=== PATIENT | female | born 1995 | race Caucasian/White ===

== ENCOUNTER → 2018-12-30 13:30 | Outpatient (CLI) | payer BC, SELFPAY ==
--- NOTE | 2018-12-30 13:41 | XR_ITS ---
XR scoliosis survey CLINICAL INDICATION: ITS.REASON: ACQUIRED SCOLIOSIS,LEFT SIDED THORACIC PAIN ORDERING PHYSICIAN: Joelle Poep APRN PATIENT AGE: 23 years Comparison: None FINDINGS: There is a mild thoracolumbar curvature convex right measuring 8 degrees slightly increased from previous exam measuring 2 degrees. No obvious congenital anomalies. IMPRESSION: Mild thoracic lumbar scoliosis convex right
== END ==
PROVIDERS: PCP Family Medicine; Visit Provider Nurse Practitioner Family
DX: M54.6 Pain in thoracic spine (principal); M41.9 Scoliosis, unspecified
CPT/HCPCS: 72081

== ENCOUNTER → 2020-08-09 10:27 | Outpatient (CLI) | payer BC, SELFPAY ==
[2020-08-09 12:55] LABS: Coronavirus 19 IgG Antibody Negative (Negative); Coronavirus 19 IgM Antibody Negative (Negative)
== END ==
PROVIDERS: PCP Family Medicine; Visit Provider Nurse Practitioner Family
DX: Z03.818 Encounter for observation for suspected exposure to other biological agents ruled out (principal)
CPT/HCPCS: 36415; 86328

== ENCOUNTER 2020-11-29 17:42 | Emergency (ER) | payer BC, SELFPAY ==
[2020-11-29 17:43] VITALS: BP 127/84; PULSE 101; RESP 18; TEMP 36.7; O2SAT 98; BMI 27.4
--- NOTE | 2020-11-29 18:24 | HMH.EDGENADL ---
ED Disposition Clinical Impression: Headache, Migraine Disposition: Home, Self-Care Condition on Discharge: Good Referrals: Lidia Palomino APRN [Primary Care Provider] - - Critical Care Critical Care Time: No Attestation: On 11/29/20, the high probability of a clinically significant, sudden or life threatening deterioration of the following system(s) required my full and direct attention, intervention and personal management. The time I documented below is in addition to time spent performing reported procedures but includes the following listed in this critical care notation. Medical Decision Making - Medical Records Medical records reviewed: Yes: I reviewed the patient's medical records. - Felipe Inquiry Pt receiving controlled substance: No Vital Signs: 11/29/20 17:43 Temperature 98.1 F Temperature Source Oral Pulse Rate [Right] 101 H Respiratory Rate 18 Blood Pressure [Right Arm] 127/84 Blood Pressure Mean [Right Arm] 98 02 Sat by Pulse Oximetry 98 Oxygen Delivery Method Room Air Orders (Tests/Meds): ED MEDICATIONS Discontinued Medications Generic Name Dose Route Start Last Admin Trade Name Rafael PRN Reason Stop Dose Admin Diphenhydramine HCl 25 mg 11/29/20 18:06 11/29/20 18:11 Diphenhydramine 25mg Capsule PO 11/29/20 18:07 25 mg ONCE ONE Administration Ketorolac Tromethamine 30 mg 11/29/20 18:06 11/29/20 18:20 Ketorolac 60mg/2ml Vial IM 11/29/20 18:07 30 mg ONCE ONE Administration Metoclopramide HCl 10 mg 11/29/20 18:06 11/29/20 18:20 Metoclopramide Hcl 10mg/2ml Vial IM 11/29/20 18:07 10 mg ONCE ONE Administration Medical Decision Narrative: 25-year-old female presents with headache. She has normal neurological exam and no concern for bleeding or stroke. Symptoms consistent with migraine headache. Given symptomatic control and plan to discharge if she feels better. Feeling much better and requesting to be discharged plan to discharge with return precautions General Adult HPI - General Chief complaint: Headache Stated complaint: HALEY Time Seen by Provider: 11/29/20 17:45 Mode of Arrival: Family Vehicle Limitations: No Limitations Description of Symptoms (Recalled from ER Triage Doc. by RN): PATIENT C/O MIGRAINE STARTING TODAY. PT REPORTS SHE HAD THE MODERNA VACCINE TODAY AND IS CONCERNED OF THAT. PT TOOK TYLENOL TODAY WITHOUT RELIEF. PT DENIES ANY HEAD INJURY. - History of Present Illness HPI narrative: 25-year-old female presents after getting a headache. She says she has a migraine headache left-sided throbbing nonradiating no numbness weakness or tingling in arms or legs. She says that it came on after getting the Moderna Covid vaccine, she requested intramuscular medication for the migraine headache. Radiation: non-radiation Consistency: intermittent - Related Data Home Medications Medication Instructions Recorded Confirmed Sertraline HCl 25 mg PO DAILY 08/11/19 08/11/19 norgestimate-ethinyl estradioL 1 tab PO DAILY 08/11/19 08/11/19 [Sprintec 28 Day Tablet] Previous Rx's Medication Instructions Recorded Nitrofurantoin Monohyd/M-Cryst 100 mg PO BID 7 Days #14 cap 08/11/19 [Macrobid 100 mg Capsule] Ondansetron [Zofran 4mg ODT] 4 mg PO Q6HP PRN #12 tab.rapdis 08/11/19 Allergies Allergy/AdvReac Type Severity Reaction Status Date / Time No Known Allergies Allergy Verified 11/12/17 15:24 [facility] History - Hepatitis A Screen Drug use history?: No High risk sexual behaviors?: No History of sexually transmitted infection?: No Currently employed?: No Childcare worker?: No Do you have indoor plumbing?: Yes Do you have electricity?: Yes Attestation statement:: This patient has been screened for Hepatitis A risk factors. Medical History: Reports:: Migraine Other Medical History: Reports: Other Comment: back problems Other Surgeries: Yes: Other Amputation: No Fractures: No Comment: 2015- Rt. jabari
[2020-11-29 18:56] VITALS: BP 103/66; PULSE 103; RESP 16; TEMP 36.6; O2SAT 97
== END 2020-11-29 18:56 | disposition home or self-care (01) ==
PROVIDERS: Emergency Provider Emergency Medicine; PCP Nurse Practitioner
DX: G43.909 Migraine, unspecified, not intractable, without status migrainosus (principal)
CPT/HCPCS: 96372; 99281

== ENCOUNTER → 2021-08-21 17:48 | Outpatient (CLI) | payer BC, SELFPAY | PROVIDERS: PCP Nurse Practitioner Family; Visit Provider Nurse Practitioner | DX: U07.1 COVID-19 (principal) | CPT/HCPCS: C9803; U0003; U0005 ==

== ENCOUNTER 2021-11-11 14:58 | Emergency (ER) | payer BC, SELFPAY ==
[2021-11-11 15:15] VITALS: BP 114/80; PULSE 106; RESP 18; TEMP 37.2; O2SAT 98; BMI 22.0
[2021-11-11 15:42] LABS: UTC Influenza A Antigen Positive (Negative)
[2021-11-11 15:43] LABS: UTC Influenza B Antigen Negative (Negative)
[2021-11-11 15:55] VITALS: BP 114/80; PULSE 106; RESP 18; TEMP 37.2; O2SAT 98
--- NOTE | 2021-11-11 16:15 | HMH.EDUTC ---
[facility] [place] Disposition Clinical Impression: Influenza Disposition: Home, Self-Care Condition on Discharge: Good Instructions: Influenza, DI for Influenza -- Adult Additional Instructions: ? Start Tamiflu today if you are going to take it. Discussed risk and possible benefits. ? Lots of rest ? Increase Fluids water, Gatorade, powerade, pedialyte,if /toddler/child ? Alternate Tylenol and / or ibuprofen as discussed for fever, aches, chills Follow up IMMEDIATELY with your family doctor for new or worsening Symptoms OR no noticeable improvement over the next 48-72 hours, 911 for difficulty or breathing ? You or your child area contagious until no fever, aches, chills for 24 hours with medication for symptoms ? Help Prevent the spread of influenza: ? Wash your hands often. Use soap and water. Wash your hands after you use the bathroom, change a child's diapers, or sneeze. Wash your hands before you prepare or eat food. Use gel hand cleanser that has 60% alcohol, when soap and water are not available. Do not touch your eyes, nose, or mouth unless you have washed your hands first. ? Cover your mouth when you sneeze or cough. Cough into a tissue or the bend of your arm. If you use a tissue, throw it away immediately and wash your hands. ? Clean shared items with a germ-killing dry cleaner helper. Clean table surfaces, doorknobs, and light switches. Do not share towels, silverware, and dishes with people who are sick. Wash bed sheets, towels, silverware, and dishes with soap and water. ? Wear a mask over your mouth and nose if you are sick. The face mask may help protect others from becoming infected with the flu. Wear the mask when in common areas of your home or if you seek care with a healthcare provider. ? Stay away from others if you are sick. Stay at home until 24 hours after your fever and symptoms are gone. Prescriptions: Oseltamivir Phosphate [Tamiflu 75mg Capsule] 75 mg PO BID #10 cap Transmission Status: Pending to [facility] Referrals: Joelle Pope APRN [Primary Care Provider] - As needed Forms: Work/School Release Time of Disposition: 16:25 Medical Decision Making - Felipe Inquiry Pt receiving controlled substance: No Felipe was queried for this patient: No Vital Signs: 11/11/21 15:15 11/11/21 15:55 Temperature 98.9 F 98.9 F Temperature Source Oral Pulse Rate 106 H Pulse Rate [Right Brachial] 106 H Respiratory Rate 18 18 Blood Pressure 114/80 Blood Pressure [Right Arm] 114/80 Blood Pressure Mean [Right Arm] 91 Blood Pressure Source [Right Arm] Automatic Cuff Blood Pressure Position [Right Arm] Sitting 02 Sat by Pulse Oximetry 98 Oxygen Delivery Method Room Air - Lab Data Lab results reviewed: Yes: I reviewed the patient's lab results. Lab Results 11/11/21 15:15: Influenza Type A Ag Positive A, Influenza Type B Ag Negative [facility] [place] HPI - General Stated complaint: fever, sore throat, bodyaches Time Seen by Provider: 11/11/21 16:15 Mode of Arrival: Ambulatory Source of Information: Patient Limitations: No Limitations Description of Symptoms (Recalled from Triage Doc. by RN): PATIENT C/O FEVER, SORE THROAT, AND BODY ACHES SINCE YESTERDAY HEENT Symptoms (Recalled from RN notes): Yes Resp Symptoms (Recalled from RN notes): No Skin Symptoms (Recalled from RN notes): No MS Symptoms (Recalled from RN notes): No Functional Status (Recalled from RN notes): WNL - History of Present Illness Provider Complaint: Patient states that she started feeling bad yesterday with bodyaches, chills, fever and over all feeling achy all over States that today she was not feeling any better so she came in to get checked - Related Data Home Medications Medication Instructions Recorded Confirmed sertraline 50 mg tablet 50 mg PO DAILY 03/19/21 08/15/21 Previous Rx's Medication Instructions Recorded norethindrone 1 mg-ethinyl 1 tab PO DAILY #84 tab 03/19/21 estradiol 20 mcg (21)-iron 75 mg (7) tablet
--- NOTE | 2022-11-11 | ECG_ITS ---
APPROVED REPORT Exam: Resting ECG HR:82 bpm ECG Measurements Heart Rate 82 AXES WY 161 P 57 QRSd 85 QRS 49 QT 364 T 52 QTc 403 Conclusion SINUS RHYTHM NORMAL ECG UNCONFIRMED REPORT Electronically signed by : Salomon Coulter MD 11/12/2022 01:40:40
== END 2021-11-11 16:30 | disposition home or self-care (01) ==
PROVIDERS: Emergency Provider Nurse Practitioner; PCP Nurse Practitioner Family
DX: J10.1 Influenza due to other identified influenza virus with other respiratory manifestations (principal); G43.909 Migraine, unspecified, not intractable, without status migrainosus
CPT/HCPCS: 87804; 99213; G0463

== ENCOUNTER → 2021-11-19 15:44 | Outpatient (CLI) | payer BC, SELFPAY ==
[2021-11-19 16:12] LABS: Basophils # 0.1 K/mm3 (0-0.2); Eosinophils # 0.1 K/mm3 (0.0-0.4); Eosinophils % 1.8 % (0.1-12.0); Hematocrit 40.1 % (37.0-47.0); Hemoglobin 13.1 g/dL (12.2-16.2); Lymphocytes % 30.5 % (10-50); Mean Corpuscular HGB Conc 32.6 g/dL (31.8-35.4); Mean Corpuscular Hemoglobin 28.6 pg (27.0-31.2); Mean Corpuscular Volume 87.8 fl (81-99); Mean Platelet Volume 8.7 fl (7.4-10.4); Monocytes # 0.2 K/mm3 (0.1-1.0); Monocytes % 3.1 % (1.7-9.3); Neutrophils % 62.7 % (37.0-80.0); Platelet Count 285 K/mm3 (142-424); Red Blood Count 4.56 M/mm3 (4.20-5.40); Red Cell Distribution Width 12.9 % (11.5-17.5); White Blood Count 6.4 K/mm3 (4.8-10.8)
[2021-11-19 16:38] LABS: Chloride 107 mmol/L (98-107)
[2021-11-19 16:39] LABS: Potassium 3.8 mmoL/L (3.5-5.1); Sodium 138 mmol/L (136-145)
[2021-11-19 16:41] LABS: Alanine Aminotransferase 22 U/L (12-78); Albumin Level 3.7 g/dl (3.5-5.0); Alkaline Phosphatase 65 U/L (38-126); Anion Gap 9.8 mEq/L (5-15); Aspartate Amino Transferase 22 U/L (14-36); Bilirubin,Total 0.3 mg/dl (0.2-1.3); Blood Urea Nitrogen 12 mg/dl (7-17); Carbon Dioxide 25 mmol/L (22.0-30.0); Estimated Glomerular Filt Rate 102 ml/min (>60); GFR (African American) 123 ML/MIN (>60); Globulin 2.6 g/dL (1.3-3.2); Total Protein,Serum 6.3 g/dl (6.3-8.2)
[2021-11-19 16:42] LABS: Albumin/Globulin Ratio 1.4 (1.1-1.8); Calcium 8.3 mg/dl (8.4-10.2); Glucose 101 mg/dl (74-100); Magnesium 1.9 mg/dl (1.6-2.3)
[2021-11-19 17:13] LABS: Thyroid Stimulating Hormone 0.93 uIU/mL (0.465-4.68)
[2021-11-19 17:16] LABS: Ferritin 32.4 ng/ml (6.24-137)
== END ==
LOC: RT 15:45
PROVIDERS: PCP Nurse Practitioner Family; Visit Provider Nurse Practitioner Family
DX: R42 Dizziness and giddiness (principal); R00.2 Palpitations
CPT/HCPCS: 36415; 80053; 82728; 83735; 84443; 85025; 93225; 93226

== ENCOUNTER → 2022-02-06 14:27 | Outpatient (CLI) | payer BC, SELFPAY ==
--- NOTE | 2022-02-06 14:31 | XR_ITS ---
FINAL REPORT CLINICAL HISTORY: LUMBAGO WITH RT SIDE SCIATICA FINDINGS: 5 views of the lumbar spine were obtained. There is no evidence of fracture or dislocation. There is mild leftward curvature. The vertebral alignment is normal. Disc spaces are preserved. No paraspinous soft tissue abnormalities identified. IMPRESSION: No acute bony abnormality. Reviewed, Interpreted and Dictated by Hernán Craig III, MD Transcribed by Myranda Aldrich Authenticated and [facility]
== END ==
PROVIDERS: PCP Nurse Practitioner Family; Visit Provider Nurse Practitioner Family
DX: M54.42 Lumbago with sciatica, left side (principal); M54.41 Lumbago with sciatica, right side
CPT/HCPCS: 72110

== ENCOUNTER 2022-03-29 11:15 | Emergency (ER) | payer SELFPAY ==
--- NOTE | 2022-03-29 11:56 | HMH.EDUTC ---
[facility] [place] Clinical Impression: Right forearm cellulitis Disposition: Home, Self-Care Condition on Discharge: Good Instructions: Cellulitis Additional Instructions: Keep the affected area clean and dry. Follow up with your regular doctor. Take the antibiotics as directed and apply the topical antibiotics as directed. Apply warm wet compresses to the affected area three or four times per day. GO TO THE ER FOR ANY WORSENING SYMPTOMS Prescriptions: Sulfamethoxazole/Trimethoprim [Bactrim DS tablet] 1 each PO BID 10 Days #20 tab Transmission Status: Received by [facility] Mupirocin [Bactroban 2% Ointment 22gm tube] 1 applicatio TP TID 7 Days #1 gm Transmission Status: Received by [facility] cephALEXin [cephALEXin 500mg capsule] 500 mg PO Q6H 10 Days #40 cap Transmission Status: Received by [facility] methylPREDNISolone [Medrol] 4 mg PO DIRECTED 6 Days #21 packet Transmission Status: Received by [facility] Referrals: Joelle Pope APRN [Primary Care Provider] - Time of Disposition: 12:09 Medical Decision Making - Medical Records Medical records reviewed: No: I reviewed the patient's medical records. - Felipe Inquiry Pt receiving controlled substance: No Vital Signs: 03/29/22 12:13 03/29/22 12:17 Temperature 98.2 F 98.2 F Temperature Source Oral Pulse Rate 90 Pulse Rate [Left] 90 Respiratory Rate 16 16 Blood Pressure 134/88 Blood Pressure [Right Arm] 134/88 Blood Pressure Mean [Right Arm] 103 02 Sat by Pulse Oximetry 97 [facility] [place] HPI - General Stated complaint: Possible insect bite Time Seen by Provider: 03/29/22 11:59 - History of Present Illness Provider Complaint: She states that for the past 2 days she has been having a worsening red and painful area on her right forearm. She thinks that she was bit by an insect and it has got infected. She denies any fever, chills, achiness or feeling bad, other than her arm being painful. - Related Data Home Medications Medication Instructions Recorded Confirmed sertraline 50 mg tablet 50 mg PO DAILY 03/19/21 08/15/21 Previous Rx's Medication Instructions Recorded norethindrone 1 mg-ethinyl 1 tab PO DAILY #84 tab 03/19/21 estradiol 20 mcg (21)-iron 75 mg (7) tablet fluconazole 150 mg tablet 150 mg PO ONCE #2 tab 08/15/21 Oseltamivir Phosphate [Tamiflu 75 mg PO BID #10 cap 11/11/21 75mg Capsule] Mupirocin [Bactroban 2% Ointment 1 applicatio TP TID 7 Days #1 gm 03/29/22 22gm tube] Sulfamethoxazole/Trimethoprim 1 each PO BID 10 Days #20 tab 03/29/22 [Bactrim DS tablet] cephALEXin [cephALEXin 500mg 500 mg PO Q6H 10 Days #40 cap 03/29/22 capsule] methylPREDNISolone [Medrol] 4 mg PO DIRECTED 6 Days #21 03/29/22 packet Allergies Allergy/AdvReac Type Severity Reaction Status Date / Time No Known Allergies Allergy Verified 03/29/22 12:15 [facility] History - Hepatitis A Screen Attestation statement:: This patient has been screened for Hepatitis A risk factors. I have reviewed the patient's past medical history: Yes Medical History: Reports:: Migraine Other Medical History: Reports: Other Comment: back problems Other Surgeries: Yes: Other Amputation: No Fractures: No Comment: 2015- Rt. breast bx - Social History Smoking Status: Never smoker Alcohol Intake: never Occupational Status: employed Family Hx:: Hypertension ROS Obtained: Yes All systems reviewed & no additional complaints - Constitutional Constitutional: Denies chills, Denies fever(s), Denies poor appetite, Denies malaise - Musculoskeletal Musculoskeletal: Denies joint pain - Integumentary/Breasts Skin/Breast: Reports as per HPI - Neurologic Neurologic: Denies tingling/numbness/burning sensations Physical Exam - General General appearance: alert, in no apparent distress - Head Head exam: atraumatic, normocephalic, normal inspection - Eye Eye exam: Present: lesley
[2022-03-29 12:13] VITALS: BP 134/88; PULSE 90; RESP 16; TEMP 36.8; O2SAT 97; BMI 25.7
[2022-03-29 12:17] VITALS: BP 134/88; PULSE 90; RESP 16; TEMP 36.8
== END 2022-03-29 12:22 | disposition home or self-care (01) ==
PROVIDERS: Emergency Provider Nurse Practitioner Family; PCP Nurse Practitioner Family
DX: L03.113 Cellulitis of right upper limb (principal)
CPT/HCPCS: 99212; G0463

== ENCOUNTER 2022-05-26 17:44 | Emergency (ER) | payer BC, SELFPAY ==
[2022-05-26 18:05] VITALS: BP 128/89; PULSE 72; RESP 16; TEMP 36.7; O2SAT 100; BMI 26.4
--- NOTE | 2022-05-26 18:48 | EXP.UTC ---
Discharge Plan Disposition Patient Disposition: Home, Self-Care Condition: Good Prescriptions Prescriptions: New prednisone 5 mg tablets,dose pack See Rx Instructions PO .COMPLEX Qty: 21 0RF Rx Instructions: taper pack as directed take as directed on package instructions triamcinolone acetonide 0.1 % cream 1 applic topical BID Qty: 30 0RF Rx Instructions: apply to areas on back No Action sertraline [Zoloft] 50 mg tablet 50 mg PO DAILY azithromycin [Zithromax] 500 mg tablet 1,000 mg PO ONCE Qty: 2 0RF norethindrone-e.estradiol-iron [09/05 (28)] 1 mg-20 mcg (21)/75 mg (7) tablet 1 tab PO DAILY Qty: 28 0RF Referrals Follow up/Referrals: Joelle Pope APRN [Primary Care Provider] - See instructions Activity Restrictions/Add. Instructions Additional Instructions/Restrictions: Start oral steriods tomorrow Follow up with your Family Doctor if no improvement or any worsening of symptoms Return if needed Straight to ER if any life threatening symptoms Clinical Impressions Clinical Impression: Urticaria Instructions Patient Instructions: DMITRIY Dorman for Hives Discharge ED Provider: Rochelle Escobedo [facility] General Stated complaint: RASH ON BACK Mode of Arrival: Ambulatory Source of Information: Patient Limitations: No Limitations Time Seen by Provider: 05/26/22 18:48 Description of Symptoms (Recalled from Triage Doc. by RN): PATIENT C/O POSSIBLE ALLERGIC REACTION TO MID-BACK AREA SINCE THURSDAY. REPORTS ITCHING AND BURNING. RED, RAISED AREAS X 3 NOTED TO AREA HEENT Symptoms (Recalled from RN notes): No Resp Symptoms (Recalled from RN notes): No Skin Symptoms (Recalled from RN notes): Yes MS Symptoms (Recalled from RN notes): No Functional Status (Recalled from RN notes): WNL History of Present Illness Provider Complaint: Patient states that she wore a sheer dress and sit in a catholic pew over the weekend and afterwards her back was itching and she noticed several large welp like areas that itches and crowe States that they have continued to itch and aggrivate her so today she came in to get them checked thinking she may be having an allergic reaction to a bite or something Related Data Home Medications Medication Instructions Recorded Confirmed sertraline 50 mg tablet (Zoloft) 50 mg PO DAILY 03/19/21 05/09/22 Previous Rx's Medication Instructions Recorded azithromycin 500 mg tablet 1,000 mg PO ONCE #2 tabs 05/12/22 (Zithromax) norethindrone 1 mg-ethinyl 1 tab PO DAILY #28 tabs 05/13/22 estradiol 20 mcg (21)-iron 75 mg (7) tablet ( FE 09/05 (28)) prednisone 5 mg tablets in a dose See Rx Instructions PO .COMPLEX 05/26/22 pack #21 tabs triamcinolone acetonide 0.1 % 1 applic topical BID #30 grams 05/26/22 topical cream Allergies Allergy/AdvReac Type Severity Reaction Status Date / Time No Known Allergies Allergy Verified 05/09/22 14:52 Worker's Comp Is this a Worker's Comp case?: No PFSH PFSH Medical History (Updated 05/26/22 @ 19:08 by Rochelle Escobedo APRN) Anxiety Depression Depression Hypertension Surgical History Hx of right breast biopsy Social History (Updated 05/26/22 @ 18:16 by Lana Bright RN) Smoking Status: Never smoker alcohol intake: current current occupational status: employed Travel in the last 8 weeks: None ROS Obtained: Yes All systems reviewed & no additional complaints except as documented and Yes Systems reviewed as appropriate & no additional complaints except as documented Cardiovascular Cardiovascular: Reports system reviewed and no additional complaints, except as documented and Reports as per HPI Respiratory Respiratory: Reports system reviewed and no additional complaints, except as documented and Reports as per HPI Integumentary/Breasts Skin/Breast: Reports system reviewed and no additional complaints, except as documen
[2022-05-26 18:49] LABS: UTC Pregnancy Test, Urine Negative (Negative)
[2022-05-26 19:13] VITALS: BP 128/89; PULSE 72; RESP 16; TEMP 36.7; O2SAT 100
== END 2022-05-26 19:40 | disposition home or self-care (01) ==
PROVIDERS: Emergency Provider Nurse Practitioner; PCP Nurse Practitioner Family
DX: L50.9 Urticaria, unspecified (principal); I10 Essential (primary) hypertension; F32.A Depression, unspecified; F41.9 Anxiety disorder, unspecified; Z79.52 Long term (current) use of systemic steroids; Z79.899 Other long term (current) drug therapy
CPT/HCPCS: 81025; 96372; 99213; G0463

== ENCOUNTER → 2022-06-06 01:44 | Outpatient (CLI) | payer BC, SELFPAY ==
[2022-06-10 04:17] LABS: Neisseria gonorrhoeae, NAA Negative (Negative)
== END ==
PROVIDERS: Visit Provider Obstetrics & Gynecology
DX: A56.09 Other chlamydial infection of lower genitourinary tract (principal)
CPT/HCPCS: 87491; 87591

== ENCOUNTER 2022-08-24 13:58 | Emergency (ER) | payer BC, SELFPAY ==
[2022-08-24 14:10] VITALS: BP 130/89; PULSE 101; RESP 18; TEMP 36.7; O2SAT 99; BMI 26.9
[2022-08-24 14:25] LABS: UTC Strep Screen (Rapid) Negative (Negative)
--- NOTE | 2022-08-24 14:34 | EXP.UTC ---
Discharge Plan Disposition Patient Disposition: Home, Self-Care Condition: Good Prescriptions Prescriptions: New azithromycin [Zithromax Z-El] 250 mg tablet See Rx Instructions .ROUTE .COMPLEX 5 Days Qty: 6 0RF Rx Instructions: For 250 mg dose pack: take 500 mg today (day 1), then 250 mg for 4 days (days 2-5) methylprednisolone [Medrol (El)] 4 mg tablets,dose pack See Rx Instructions .Route .COMPLEX 6 Days Qty: 21 0RF Rx Instructions: taper pack; fluticasone propionate [Flonase Allergy Relief] 50 mcg/actuation spray,suspension 1 spray intranasal DAILY Qty: 16 0RF Rx Instructions: administer into each nostril No Action sertraline [Zoloft] 50 mg tablet 50 mg PO DAILY One-A-Day Women's Complete 18 mg-400 mcg- 25 mcg tablet 1 tab PO DAILY Kyleena 17.5 mcg/24 hrs (5 yrs) 19.5 mg intrauterine device 1 device intrauterine ONCE Referrals Follow up/Referrals: Joelle Pope APRN [Primary Care Provider] - See instructions Activity Restrictions/Add. Instructions Additional Instructions/Restrictions: *Monitor Temp, Over the counter Motrin or Tylenol as directed/as needed Tylenol every 4 hours and Motrin every 6 hours (as long as your family doctor has told you that you can take it) for fever or pain. and straight to ER if unable to lower temp less than 101.0 after medication given *Warm salt water gargles may help to soothe the throat *Throat Lozenges? *Warm fluids like tea with honey may help to soothe the throat? *Sleep elevated *Humidifier/Vaporizer *Flonase 2 sprays in each nostril daily but be aware that it may take 2-3 days before you notice improvement Your throat swab was sent for culture. Those results are typically sent to your primary care. Be sure to follow up in 2-3 days with your family doctor/primary care physician if no improvement so they can review those result and treat if necessary. If you don?t have a primary care doctor, I recommend you get one but in the mean time, you will have to return to a walk in clinic Follow up IMMEDIATELY for new or worsening symptoms or no Noticeable improvement over the next 48-72 hours. 911 for difficulty breathing or swallowing Clinical Impressions Clinical Impression: URI (upper respiratory infection) Qualifiers: URI type: unspecified URI Qualified Code(s): J06.9 - Acute upper respiratory infection, unspecified Instructions Patient Instructions: Sore Throat, DI for Eustachian Tube Dysfunction-Adult Discharge ED Provider: Rochelle Escobedo [facility] [place] HPI General Stated complaint: Lightheaded, bodyaches, sore throat Mode of Arrival: Ambulatory Source of Information: Patient Limitations: No Limitations Time Seen by Provider: 08/24/22 14:34 Description of Symptoms (Recalled from Triage Doc. by RN): PATIENT C/O LETHARGY, LIGHT-HEADED, AND SWELLING TO THROAT AND SALIVARY GLANDS HEENT Symptoms (Recalled from RN notes): Yes Resp Symptoms (Recalled from RN notes): No Skin Symptoms (Recalled from RN notes): No MS Symptoms (Recalled from RN notes): No Functional Status (Recalled from RN notes): WNL History of Present Illness Provider Complaint: Patient states that she hasnt been feeling well for a couple of days States that she has been feeling achy and tired having sore throat, and feels like she either has swollen lymph nodes or her salivary glands may be swollen again States that earlier she felt a little light headed and shaky but she has done that before and her PCP told her it was her anxiety Denies Light headedness right now Related Data Home Medications Medication Instructions Recorded Confirmed sertraline 50 mg tablet (Zoloft) 50 mg PO DAILY Anxiety 03/19/21 08/24/22 esnakakx-rnzsbiy-yidq-iron 18 1 tab PO DAILY 06/24/22 07/22/22 mg-FA 400 mcg-vit K 25 mcg tablet (One-A-Day Women's Complete) levonorgestrel 17.5 mcg/24 hrs 1 device intrauterine ONCE 07/22/22 08/24/22 (5yrs) 19.5mg intr
[2022-08-24 15:00] VITALS: BP 130/89; PULSE 101; RESP 18; TEMP 36.7; O2SAT 99
== END 2022-08-24 15:01 | disposition home or self-care (01) ==
PROVIDERS: Emergency Provider Nurse Practitioner; PCP Nurse Practitioner Family
DX: J06.9 Acute upper respiratory infection, unspecified (principal)
CPT/HCPCS: 87880; 99212; 99213; C9803; G0463; U0003; U0005

== ENCOUNTER → 2022-11-11 12:21 | Outpatient (CLI) | payer BC, SELFPAY ==
[2022-11-11 12:58] LABS: Basophils # 0.1 K/mm3 (0-0.2); Basophils % 1.2 % (0.1-2.0); Eosinophils # 0.2 K/mm3 (0.0-0.4); Eosinophils % 1.9 % (0.1-12.0); Hematocrit 42.1 % (37.0-47.0); Hemoglobin 13.9 g/dL (12.2-16.2); Lymphocytes % 19.5 % (10-50); Mean Corpuscular Hemoglobin 28.2 pg (27.0-31.2); Mean Corpuscular Volume 85.5 fl (81-99); Mean Platelet Volume 9.5 fl (7.4-10.4); Monocytes # 0.4 K/mm3 (0.1-1.0); Monocytes % 3.8 % (1.7-9.3); Neutrophils # 7.5 K/mm3 (1.8-7.8); Neutrophils % 73.5 % (37.0-80.0); Platelet Count 211 K/mm3 (142-424); Red Blood Count 4.93 M/mm3 (4.20-5.40); Red Cell Distribution Width 12.4 % (11.5-17.5); White Blood Count 10.2 K/mm3 (4.8-10.8)
[2022-11-11 13:29] LABS: Alanine Aminotransferase 18 U/L (12-78); Albumin Level 4.5 g/dl (3.5-5.0); Albumin/Globulin Ratio 1.8 (1.1-1.8); Alkaline Phosphatase 84 U/L (38-126); Anion Gap 9.9 mEq/L (5-15); Aspartate Amino Transferase 22 U/L (14-36); Bilirubin,Total 0.4 mg/dl (0.2-1.3); Blood Urea Nitrogen 15 mg/dl (7-17); Calcium 8.6 mg/dl (8.4-10.2); Carbon Dioxide 31 mmol/L (22.0-30.0); Chloride 101 mmol/L (98-107); Estimated Glomerular Filt Rate 121 ml/min (>60); GFR (African American) 146 ML/MIN (>60); Globulin 2.5 g/dL (1.3-3.2); Glucose 87 mg/dl (74-100); Potassium 3.9 mmoL/L (3.5-5.1); Sodium 138 mmol/L (136-145)
[2022-11-11 13:58] LABS: Thyroid Stimulating Hormone 1.52 uIU/mL (0.465-4.68)
== END ==
PROVIDERS: PCP Family Medicine; Visit Provider Family Medicine
DX: F41.9 Anxiety disorder, unspecified (principal); I49.9 Cardiac arrhythmia, unspecified
CPT/HCPCS: 36415; 80053; 84443; 85025; 93005

== ENCOUNTER → 2022-11-18 15:38 | Outpatient (CLI) | payer BC, SELFPAY | PROVIDERS: PCP Family Medicine; Visit Provider Nurse Practitioner | DX: R55 Syncope and collapse (principal); R00.2 Palpitations | CPT/HCPCS: 93270 ==

== ENCOUNTER → 2022-12-01 10:48 | Outpatient (CLI) | payer BC, SELFPAY | PROVIDERS: PCP Family Medicine; Visit Provider Nurse Practitioner | DX: R00.2 Palpitations (principal); R55 Syncope and collapse | CPT/HCPCS: 93306 ==

== ENCOUNTER 2023-05-31 13:34 | Emergency (ER) | payer BC, SELFPAY ==
[2023-05-31 13:55] VITALS: BP 111/70; PULSE 77; RESP 17; TEMP 37.1; O2SAT 98; BMI 27.6
--- NOTE | 2023-05-31 14:29 | EXP.UTC ---
Discharge Plan Disposition Patient Disposition: Home, Self-Care Condition: Good Prescriptions Prescriptions: New methylprednisolone [Medrol (El)] 4 mg tablets,dose pack See Rx Instructions .Route .COMPLEX 6 Days Qty: 21 0RF Rx Instructions: taper pack; amoxicillin-pot clavulanate 875-125 mg Tablet 1 tab PO Q12H Qty: 20 0RF No Action budesonide-formoterol [Symbicort] 80-4.5 mcg/actuation HFA aerosol inhaler 2 puff inhalation BID sertraline 100 mg tablet 50 mg PO DAILY Qty: 90 1RF bisoprolol fumarate 5 mg tablet 2.5 mg PO QDAY Qty: 30 5RF Referrals Follow up/Referrals: Sean Lugo DO [Primary Care Provider] - See instructions Activity Restrictions/Add. Instructions Additional Instructions/Restrictions: *Monitor Temp, Over the counter Motrin or Tylenol as directed/as needed Tylenol every 4 hours and Motrin every 6 hours (as long as your family doctor has told you that you can take it) for fever or pain. and straight to ER if unable to lower temp less than 101.0 after medication given *Warm salt water gargles may help to soothe the throat *Throat Lozenges? *Warm fluids like tea with honey may help to soothe the throat? *Sleep elevated *Humidifier/Vaporizer Take medication as prescribed Follow up IMMEDIATELY for new or worsening symptoms or no Noticeable improvement over the next 48-72 hours. 911 for difficulty breathing or swallowing Clinical Impressions Clinical Impression: Bronchitis Sinusitis Qualifiers: Sinusitis location: unspecified location Chronicity: unspecified Qualified Code(s): J32.9 - Chronic sinusitis, unspecified Instructions Patient Instructions: DI for Sinusitis, Sinusitis, Acute Bronchitis Discharge ED Provider: Rochelle Escobedo [facility] General Stated complaint: SOA, cough, left ear pain Mode of Arrival: Ambulatory Source of Information: Patient Limitations: No Limitations Time Seen by Provider: 05/31/23 14:29 Description of Symptoms (Recalled from Triage Doc. by RN): PATIENT C/O SOA, CONGESTION, AND LEFT EAR PAIN X 3 DAYS HEENT Symptoms (Recalled from RN notes): Yes Resp Symptoms (Recalled from RN notes): Yes Skin Symptoms (Recalled from RN notes): No MS Symptoms (Recalled from RN notes): No Functional Status (Recalled from RN notes): WNL History of Present Illness Provider Complaint: Patient states that she has been having sinus pain and pressure, cough, pain in her left ears and at times feeling a little SOA States that she has a history of asthma and it has flared up on her little since being sick Related Data Home Medications Medication Instructions Recorded Confirmed budesonide-formoterol HFA 80 2 puff inhalation BID 04/22/23 05/31/23 mcg-4.5 mcg/actuation aerosol inhaler (Symbicort) Previous Rx's Medication Instructions Recorded bisoprolol fumarate 5 mg tablet 2.5 mg PO QDAY #30 tabs 11/18/22 sertraline 100 mg tablet 50 mg PO DAILY #90 tabs 04/22/23 amoxicillin 875 mg-potassium 1 tab PO Q12H #20 tabs 05/31/23 clavulanate 125 mg tablet methylprednisolone 4 mg tablets in See Rx Instructions .Route 05/31/23 a dose pack (Medrol (El)) .COMPLEX 6 days #21 tabs Allergies Allergy/AdvReac Type Severity Reaction Status Date / Time No Known Allergies Allergy Verified 05/20/23 11:03 Worker's Comp Is this a Worker's Comp case?: No [facility] Disclaimer: The information contained in this section may have been updated after the patient was seen, as this information can be updated by other users. Medical History Allergic reaction to animal Anxiety Asthma Cellulitis Depression Encounter for insertion of intrauterine contraceptive device (IUD) Kyniviaena 06/24/22 General counseling and advice for contraceptive management Migraine Near syncope Recurrent acute otitis media Urticaria Vertigo Surgical History (Reviewed
[2023-05-31 14:51] VITALS: BP 129/84; PULSE 86; RESP 18; TEMP 36.6; O2SAT 99
== END 2023-05-31 14:51 | disposition home or self-care (01) ==
PROVIDERS: Emergency Provider Nurse Practitioner; PCP Internal Medicine
DX: J20.9 Acute bronchitis, unspecified (principal); J01.90 Acute sinusitis, unspecified; J45.909 Unspecified asthma, uncomplicated; F41.9 Anxiety disorder, unspecified; F32.A Depression, unspecified
CPT/HCPCS: 99212; 99214; G0463

== ENCOUNTER → 2023-06-05 11:15 | Outpatient (CLI) | payer BC, SELFPAY ==
[2023-06-05 14:28] LABS: Microscopic, Urine URINE MICROSCOPIC (MICROSCOPIC)
[2023-06-05 14:37] LABS: Appearance,Urine SL CLOUDY (Clear); Bilirubin,Urine Negative (Negative); Blood, Urine Negative (Negative); Color,Urine YELLOW (Yellow); Glucose,Urine (UA) Negative (Negative); Ketones,Urine Negative (Negative); Leukocyte Esterase,Urine Negative (Negative); Nitrate,Urine Negative (Negative); Protein,Urine Negative (Negative); Specific Gravity, Urine 1.025 (1.005-1.030); Urobilinogen,Urine 0.2 EU/dl (0.2)
[2023-06-05 14:42] LABS: Basophils # 0.1 K/mm3 (0-0.2); Basophils % 0.5 % (0.1-2.0); Eosinophils # 0.2 K/mm3 (0.0-0.4); Eosinophils % 1.9 % (0.1-12.0); Hematocrit 41.7 % (37.0-47.0); Hemoglobin 14.2 g/dL (12.2-16.2); Lymphocytes # 2.6 K/mm3 (0.7-4.5); Lymphocytes % 26.6 % (10-50); Mean Corpuscular HGB Conc 34.2 g/dL (31.8-35.4); Mean Corpuscular Volume 87.7 fl (81-99); Mean Platelet Volume 9.4 fl (7.4-10.4); Monocytes # 0.4 K/mm3 (0.1-1.0); Monocytes % 4.4 % (1.7-9.3); Neutrophils # 6.6 K/mm3 (1.8-7.8); Neutrophils % 66.6 % (37.0-80.0); Platelet Count 242 K/mm3 (142-424); Red Blood Count 4.75 M/mm3 (4.20-5.40); Red Cell Distribution Width 12.2 % (11.5-17.5); White Blood Count 9.9 K/mm3 (4.8-10.8)
[2023-06-05 15:46] LABS: Alanine Aminotransferase 23 U/L (12-78); Albumin Level 4.5 g/dl (3.5-5.0); Albumin/Globulin Ratio 1.6 (1.1-1.8); Alkaline Phosphatase 66 U/L (38-126); Anion Gap 13.5 mEq/L (5-15); Aspartate Amino Transferase 23 U/L (14-36); Bilirubin,Total 0.2 mg/dl (0.2-1.3); Blood Urea Nitrogen 14 mg/dl (7-17); Calcium 9.3 mg/dl (8.4-10.2); Carbon Dioxide 27 mmol/L (22.0-30.0); Chloride 103 mmol/L (98-107); Estimated Glomerular Filt Rate 100 ml/min (>60); GFR (African American) 121 ML/MIN (>60); Globulin 2.8 g/dL (1.3-3.2); Glucose 82 mg/dl (74-100); Potassium 4.5 mmoL/L (3.5-5.1); Sodium 139 mmol/L (136-145); Total Protein,Serum 7.3 g/dl (6.3-8.2)
[2023-06-05 15:48] LABS: WBC,Urine Occasional #/hpf (0-3)
[2023-06-05 15:49] LABS: Amorphous Sediment,Urine 2+ /lpf; Bacteria,Urine Trace /lpf
[2023-06-05 15:59] LABS: C-Reactive Protein 5.6 mg/L (0-4)
[2023-06-05 16:11] LABS: Free T4 (Free Thyroxine) 1.26 ng/dl (0.78-2.19)
[2023-06-05 16:17] LABS: Thyroid Stimulating Hormone 0.93 uIU/mL (0.465-4.68)
== END ==
PROVIDERS: PCP Internal Medicine; Visit Provider Internal Medicine
DX: R61 Generalized hyperhidrosis (principal)
CPT/HCPCS: 80053; 81001; 84439; 84443; 85025; 86140

== ENCOUNTER → 2023-06-30 14:09 | Outpatient (POV) | payer BC, SELFPAY | PROVIDERS: PCP Internal Medicine; Visit Provider Dermatology | DX: Z00.00 Encounter for general adult medical examination without abnormal findings (principal) ==

== ENCOUNTER → 2023-07-01 09:29 | Day surgery (SDC) | payer BC, SELFPAY ==
[2023-07-01 09:54] VITALS: BP 127/67; PULSE 71; RESP 18; TEMP 36.3; O2SAT 97; BMI 26.2
--- NOTE | 2023-07-01 13:07 | EXP.TILT ---
Findings:: PROCEDURE: Tilt Table Test REQUESTING PROVIDER: Belkis Ness MD INDICATION: Lightheadedness and near syncope with standing. Tachycardia when standing.
--- NOTE | 2023-07-01 13:11 | EXP.TILT ---
Findings:: PROCEDURE: Tilt Table Test REQUESTING PROVIDER: Belkis Ness MD INDICATION: Lightheadedness and near syncope with standing. Tachycardia when standing. BETA BLOCKERS: Stopped several weeks ago. PRE-TEST VITAL SIGNS (supine position): HR 67 and sinus rhythm, BP 127/77, Oxygen Sats 100% on Room Air PROCEDURE SUMMARY: Patient was prepped per protocol, IV started, connected to heart, blood pressure and oxygen saturation monitors, and safety straps applied. She was then tilted to 70 degrees upright for a total of 30 minutes. The patient complained of dizziness upon being placed in the upright position. While upright she felt intermittently lightheaded and weak, especially in the legs. After 25 minutes upright she felt nauseated, but indicated that she could complete the test, which she did. Her heart rate increased from 67 bpm supine to the mid to upper 80s consistently, while upright. The highest noted HR was 90 bpm, occurring only briefly. Her heart rhythm was normal sinus throughout. Her systolic blood pressure remained stable with only mild fluctuations while upright. Her lowest SBP was 122 mmHg after being upright for 15 minutes. Her highest SBP was 141 mmHg after 25 minutes upright. Her lowest DBP was 71 mmHg occurring after 25 minutes upright and her highest DBP was 97 mmHg, after being in the upright position for 5 minutes. Oxygen saturation was upper 90s throughout. CONCLUSIONS: Symptoms of lightheadedness and weakness which waxed and waned while upright and then some nausea towards the end of the test. No significant changes in heart rate or blood pressure.
== END ==
PROVIDERS: PCP Internal Medicine; Visit Provider Internal Medicine
DX: R55 Syncope and collapse (principal); R00.0 Tachycardia, unspecified; R42 Dizziness and giddiness
CPT/HCPCS: 93660

== ENCOUNTER → 2023-07-28 12:21 | Outpatient (CLI) | payer BC, SELFPAY | LOC: RT 12:22 | PROVIDERS: PCP Internal Medicine; Visit Provider Specialist | DX: R55 Syncope and collapse (principal); G90.A Postural orthostatic tachycardia syndrome [POTS] | CPT/HCPCS: 93270 ==

== ENCOUNTER 2023-08-25 08:11 | Outpatient (CLI) | payer BC, SELFPAY ==
--- NOTE | 2023-08-25 08:11 | MR_ITS ---
FINAL REPORT CLINICAL HISTORY: headache,fatigue,passing out FINDINGS: Multiplanar MR imaging of the brain was performed without contrast. There is no evidence of intracranial hemorrhage or mass. The ventricular size is normal. There is no evidence of shift of the midline structures. No abnormal extra-axial fluid collection is identified. The posterior fossa and brainstem have an unremarkable appearance. No area of abnormal restricted diffusion is identified. Normal major vessel vascular flow voids are seen. IMPRESSION: Unremarkable brain with no acute intracranial abnormality. Reviewed, Interpreted and Dictated by Hernán Craig III, MD Transcribed by Jessica Kenyon Authenticated and [facility]
== END 2023-08-25 23:59 ==
LOC: RAD 08:11
PROVIDERS: PCP Internal Medicine; Visit Provider Specialist
DX: G43.909 Migraine, unspecified, not intractable, without status migrainosus (principal); G90.A Postural orthostatic tachycardia syndrome [POTS]; R55 Syncope and collapse
CPT/HCPCS: 70551

== ENCOUNTER 2023-10-02 17:35 | Emergency (ER) | payer BC, SELFPAY ==
[2023-10-02 18:10] VITALS: BP 120/81; PULSE 70; RESP 18; TEMP 36.7; O2SAT 98; BMI 26.4
--- NOTE | 2023-10-02 18:27 | ED_ITS ---
Discharge Plan Disposition Patient Disposition: Home, Self-Care Condition: Good Prescriptions Prescriptions: New amoxicillin 500 mg capsule 500 mg PO TID 7 Days Qty: 21 0RF No Action budesonide-formoterol [Symbicort] 80-4.5 mcg/actuation HFA aerosol inhaler 2 puff inhalation BID sertraline 100 mg tablet 50 mg PO DAILY Qty: 90 1RF ketotifen fumarate 0.025 % (0.035 %) drops 1 drp ophthalmic (eye) Q12H PRN azelastine 137 mcg (0.1 %) aerosol,spray 2 spray intranasal BID PRN Rx Instructions: administer into each nostril fluticasone propionate [Flonase Allergy Relief] 50 mcg/actuation spray,suspension 1 spray intranasal BID PRN Rx Instructions: administer into each nostril Vraylar 1.5 mg capsule 1.5 mg PO Q OTHER DAY Qty: 30 2RF multivitamin Tablet 1 tab PO DAILY levalbuterol tartrate 45 mcg/actuation HFA aerosol inhaler 2 puff inhalation Referrals Follow up/Referrals: Sean Lugo DO [Primary Care Provider] - See instructions Activity Restrictions/Add. Instructions Additional Instructions/Restrictions: Take medication as prescribed Follow up with your Family Doctor if no improvement or any worsening of symptoms Over the counter Motrin and/or Tylenol for pain Return if needed Use flonase as prescribed Clinical Impressions Clinical Impression: Otitis media Qualifiers: Otitis media type: unspecified Laterality: right Qualified Code(s): H66.91 - Otitis media, unspecified, right ear Instructions Patient Instructions: Middle Ear Infection, Amoxicillin Discharge ED Provider: Rochelle Escobedo [facility] General Stated complaint: right ear pain skin on right side of face pain Mode of Arrival: Ambulatory Source of Information: Patient Limitations: No Limitations Time Seen by Provider: 10/02/23 18:28 Description of Symptoms (Recalled from Triage Doc. by RN): PATIENT C/O RIGHT EAR PAIN SINCE THIS MORNING HEENT Symptoms (Recalled from RN notes): Yes Resp Symptoms (Recalled from RN notes): No Skin Symptoms (Recalled from RN notes): No MS Symptoms (Recalled from RN notes): No Functional Status (Recalled from RN notes): WNL History of Present Illness Provider Complaint: Patient states that she has been having pain in her right ear since this morning States that as the day went on the pain got worse and felt like her ear was pulsating so mother brought her in Related Data Home Medications Medication Instructions Recorded Confirmed budesonide-formoterol HFA 80 2 puff inhalation BID 04/22/23 09/28/23 mcg-4.5 mcg/actuation aerosol inhaler (Symbicort) azelastine 137 mcg (0.1 %) nasal 2 spray intranasal BID PRN 06/04/23 09/28/23 spray aerosol fluticasone propionate 50 1 spray intranasal BID PRN 06/04/23 09/28/23 mcg/actuation nasal spray,suspension (Flonase Allergy Relief) ketotifen fumarate 0.025 % (0.035 1 drp ophthalmic (eye) Q12H PRN 06/04/23 09/28/23 %) eye drops levalbuterol tartrate 45 2 puff inhalation 07/17/23 09/28/23 mcg/actuation aerosol inhaler multivitamin 1 tab PO DAILY 07/27/23 09/28/23 Previous Rx's Medication Instructions Recorded sertraline 100 mg tablet 50 mg PO DAILY #90 tabs 04/22/23 cariprazine 1.5 mg capsule 1.5 mg PO Q OTHER DAY #30 caps 06/17/23 (Vraylar) amoxicillin 500 mg capsule 500 mg PO TID 7 days #21 caps 10/02/23 Allergies Allergy/AdvReac Type Severity Reaction Status Date / Time No Known Allergies Allergy Verified 09/28/23 15:01 Worker's Comp Is this a Worker's Comp case?: No [facility] Disclaimer: The information contained in this section may have been updated after the patient was seen, as this information can be updated by other users. Medical History Allergic reaction to animal Anxiety Asthma Cellulitis Depression Encounter for insertion of intrauterine contraceptive device (IUD) Kyleena 06/24/22 General counseling and advice for contraceptive management Migraine Migraine Near syncope Palpitations Recurrent acute otitis media Urticaria Vertigo Surgical History Hx of right breast biopsy Family History Father Hyperlipidemia Hypertension Mother Cancer Thyroid Hypertension Social History Smoking Status: Current some day smoker alcohol intake: current substance use type: denies use current occupational status: employed Travel in the last 8 weeks: None household members: children housing: apartment marital status: single ROS Obtained: Yes All systems reviewed & no additional complaints except as documented and Yes Systems reviewed as appropriate & no additional complaints except as documented Constitutional Constitutional: Reports system reviewed and no additional complaints, except as documented and Reports as per HPI ENT Ears, Nose, Mouth, and Throat: Reports system reviewed and no additional complaints, except as documented, Reports as per HPI and Reports otalgia Cardiovascular Cardiovascular: Reports system reviewed and no additional complaints, except as documented and Reports as per HPI Respiratory Respiratory: Reports system reviewed and no additional complaints, except as documented and Reports as per HPI Gastrointestinal Gastrointestingal: Reports system reviewed and no additional complaints, except as documented and as per HPI Physical Exam General General appearance: alert and in no apparent distress ENT ENT exam: Present mucous membranes moist Expanded ENT Exam TM/Canal exam: Right TM: erythema and bulging Throat exam: Present normal inspection Respiratory Respiratory exam: Present normal lung sounds bilaterally; Absent respiratory distress or wheezes Cardiovascular Cardiovascular exam: Present regular rate, normal rhythm and normal heart sounds Neurological Exam Neurological exam: Present alert, oriented X3 and normal gait Medical Decision Making Felipe Inquiry Pt receiving controlled substance: No Felipe was queried for this patient: No Vital Signs: 10/02/23 18:10 Temperature 98.1 F Temperature Source Oral Pulse Rate [Left Brachial] 70 Respiratory Rate 18 Blood Pressure [Left Arm] 120/81 Blood Pressure Mean [Left Arm] 94 Blood Pressure Source [Left Arm] Automatic Cuff Blood Pressure Position [Left Arm] Sitting 02 Sat by Pulse Oximetry 98 Oxygen Delivery Method Room Air
[2023-10-02 18:50] VITALS: BP 120/81; PULSE 70; RESP 18; TEMP 36.7; O2SAT 98
== END 2023-10-02 18:54 | disposition home or self-care (01) ==
PROVIDERS: Emergency Provider Nurse Practitioner; PCP Internal Medicine
DX: H66.91 Otitis media, unspecified, right ear (principal); F17.210 Nicotine dependence, cigarettes, uncomplicated
CPT/HCPCS: 99212; 99214; G0463

== ENCOUNTER 2024-04-25 15:02 | Outpatient (CLI) | payer BC, SELFPAY ==
[2024-04-25 13:41] LABS: Coronavirus 19, PCR Not Detected (NotDetected); Influenza A, PCR Not Detected (NotDetected); Influenza B, PCR Not Detected (NotDetected)
== END 2024-04-25 23:59 | disposition home or self-care (01) ==
LOC: LAB.DROPOF 15:02
PROVIDERS: PCP Nurse Practitioner Family; Visit Provider Nurse Practitioner Family
DX: R68.89 Other general symptoms and signs (principal)
CPT/HCPCS: 87636

== ENCOUNTER 2024-07-09 13:07 | Emergency (ER) | payer OTHER, SELFPAY ==
[2024-07-09 13:30] VITALS: BP 128/88; PULSE 70; RESP 21; TEMP 36.7; O2SAT 99; BMI 23.4
[2024-07-09 13:49] LABS: UTC Strep Screen (Rapid) Negative (Negative)
--- NOTE | 2024-07-09 14:01 | EXP.UTC ---
Discharge Plan Disposition Patient Disposition: Home, Self-Care Condition: Good Prescriptions Prescriptions: New prednisone 20 mg tablet 20 mg PO BID Qty: 10 0RF No Action budesonide-formoterol [Symbicort] 80-4.5 mcg/actuation HFA aerosol inhaler 2 puff inhalation BID sertraline 100 mg tablet 50 mg PO DAILY Qty: 90 1RF Vraylar 1.5 mg capsule 1.5 mg PO DAILY Qty: 30 2RF Qulipta 60 mg tablet 60 mg PO DAILY Qty: 30 2RF Referrals Follow up/Referrals: Sean Lugo DO [Primary Care Provider] - See instructions Activity Restrictions/Add. Instructions Additional Instructions/Restrictions: No sign of a bacterial infection. Likely viral. Viruses can take 7-14 days to run their course. Nasal saline and bulb syringe or nose Martha to remove nasal drainage to help with nasal congestion. Hard to eat, drink, sleep with nasal congestion so important to keep this cleaned out. Monitor temp. Tylenol or Motrin as needed for pain or fever Encourage fluids, water, Gatorade, Powerade, Pedialyte if /toddler/child Warm salt water gargles Warm fluids Sore throat lozenges Sleep elevated Humidifier/vaporizer Follow-up immediately for new or worsening symptoms or no noticeable improvement over the next 48-72 hours. Clinical Impressions Clinical Impression: Upper respiratory infection, viral Instructions Patient Instructions: DI for Viral Upper Respiratory Infection -- Adult Print Language Print Language: Austrian Discharge ED Provider: Huseyin ([facility])Carolyn [facility] [place] HPI General Stated complaint: SOA, congestion, sore throat Mode of Arrival: Ambulatory Source of Information: Patient Limitations: No Limitations Time Seen by Provider: 07/09/24 14:01 Description of Symptoms (Recalled from Triage Doc. by RN): PATIENT C/O SORE THROAT, CONGESTION, AND SOA THAT STARTED YESTERDAY HEENT Symptoms (Recalled from RN notes): Yes Resp Symptoms (Recalled from RN notes): Yes Skin Symptoms (Recalled from RN notes): No MS Symptoms (Recalled from RN notes): No Functional Status (Recalled from RN notes): WNL History of Present Illness Provider Complaint: 29-year-old female presents for complaints of sore throat, congestion, and short of air since yesterday. Patient states her son was diagnosed with strep last week and her with a upper respiratory infection Related Data Home Medications ?Medication ?Instructions ?Recorded ?Confirmed budesonide-formoterol HFA 80 2 puff inhalation BID 04/22/23 07/09/24 mcg-4.5 mcg/actuation aerosol inhaler (Symbicort) Previous Rx's ?Medication ?Instructions ?Recorded sertraline 100 mg tablet 50 mg (1/2 x 100 mg) PO DAILY #90 04/22/23 tabs cariprazine 1.5 mg capsule 1.5 mg PO DAILY #30 caps 04/25/24 (Vraylar) atogepant 60 mg tablet (Qulipta) 60 mg PO DAILY #30 tabs 07/05/24 prednisone 20 mg tablet 20 mg PO BID #10 tabs 07/09/24 Allergies Allergy/AdvReac Type Severity Reaction Status Date / Time No Known Allergies Allergy Verified 07/05/24 16:08 Worker's Comp Is this a Worker's Comp case?: No [facility] Disclaimer: The information contained in this section may have been updated after the patient was seen, as this information can be updated by other users. Medical History , [employer]) Palpitations Migraine Asthma Cellulitis Allergic reaction to animal Near syncope Encounter for insertion of intrauterine contraceptive device (IUD) General counseling and advice for contraceptive management Vertigo Recurrent acute otitis media Urticaria Depression Anxiety Migraine Surgical History , [employer]) Hx of right breast biopsy Family History , [employer]) Hyperlipidemia Father Cancer Mother Hypertension Father Mother Social History , [employer]) Smoking Status: Former smoker alcohol intake: current alcohol intake frequency: holidays/special occasions only substance use type: denies use current occupational status: employed household members: children housing: apartment marital status: single ROS Obtained: Yes Systems reviewed as appropriate & no additional complaints except as documented Physical Exam General General appearance: alert and in no apparent distress Eye Eye exam: Present normal appearance ENT ENT exam: Present normal exam, normal oropharynx, mucous membranes moist and TM's normal bilaterally Expanded ENT Exam Nose/Mouth Image: 1. Redness 2. Redness Respiratory Respiratory exam: Present normal lung sounds bilaterally Cardiovascular Cardiovascular exam: Present regular rate and normal rhythm Neurological Exam Neurological exam: Present alert and oriented X3 Medical Decision Making Medical Records Medical records reviewed: Yes I reviewed the patient's medical records. Screening: Per USPSTF and CDC recommendations, given the prevalence of disease in our region, it is our hospital?s policy to screen for HIV and viral Hepatitis for all patients aged 18 and over and those with ongoing risk factors. Felipe Inquiry Pt receiving controlled substance: No Felipe was queried for this patient: No Vital Signs: 07/09/24 13:30 Temperature 98.0 F Temperature Source Oral Pulse Rate [Left Brachial] 70 Respiratory Rate 21 Blood Pressure [Left Arm] 128/88 Blood Pressure Mean [Left Arm] 101 Blood Pressure Source [Left Arm] Automatic Cuff Blood Pressure Position [Left Arm] Sitting 02 Sat by Pulse Oximetry 99 Oxygen Delivery Method Room Air Lab Data Lab results reviewed: Yes I reviewed the patient's lab results. Lab Results 07/09/24 13:41: Strep Scn Rapid Clinic Negative Orders (Tests/Meds): ORDERS Category Date Time Status Strep Screen Confirmation Stat Micro 07/09/24 13:41 Received
[2024-07-09 14:15] VITALS: BP 128/88; PULSE 70; RESP 21; TEMP 36.7; O2SAT 99
== END 2024-07-09 14:19 | disposition home or self-care (01) ==
PROVIDERS: Emergency Provider Nurse Practitioner Family; PCP Internal Medicine
DX: J06.9 Acute upper respiratory infection, unspecified (principal)
CPT/HCPCS: 87880; 99213; G0381

== ENCOUNTER 2024-09-13 14:39 | Outpatient (CLI) | payer OTHER, SELFPAY ==
[2024-09-13 15:25] LABS: Basophils # 0.1 K/mm3 (0-0.2); Basophils % 0.7 % (0.1-2.0); Eosinophils # 0.2 K/mm3 (0.0-0.4); Eosinophils % 1.9 % (0.1-12.0); Hematocrit 40.6 % (37.0-47.0); Hemoglobin 13.3 g/dL (12.2-16.2); Lymphocytes # 1.8 K/mm3 (0.7-4.5); Lymphocytes % 21.4 % (10-50); Mean Corpuscular HGB Conc 32.8 g/dL (31.8-35.4); Mean Corpuscular Hemoglobin 28.4 pg (27.0-31.2); Mean Corpuscular Volume 86.6 fl (81-99); Mean Platelet Volume 11.3 fl (7.4-10.4); Monocytes # 0.4 K/mm3 (0.1-1.0); Monocytes % 4.5 % (1.7-9.3); Neutrophils # 5.9 K/mm3 (1.8-7.8); Neutrophils % 71.3 % (37.0-80.0); Platelet Count 206 K/mm3 (142-424); Red Blood Count 4.69 M/mm3 (4.20-5.40); Red Cell Distribution Width 12.1 % (11.5-17.5); White Blood Count 8.3 K/mm3 (4.8-10.8)
[2024-09-13 15:42] LABS: Alanine Aminotransferase 24 U/L (12-78); Albumin Level 4.5 g/dl (3.5-5.0); Alkaline Phosphatase 59 U/L (38-126); Anion Gap 12.8 mEq/L (5-15); Aspartate Amino Transferase 26 U/L (14-36); Bilirubin,Indirect 0.2 mg/dL (0.0-0.9); Bilirubin,Total 0.2 mg/dl (0.2-1.3); Bilirubin,Unconjugated 0.2 mg/dL (0.0-1.1); Blood Urea Nitrogen 13 mg/dl (7-17); Calcium 9.3 mg/dl (8.4-10.2); Carbon Dioxide 26 mmol/L (22.0-30.0); Chloride 103 mmol/L (98-107); Chol/HDL Ratio 2.8 (1-3.5); Cholesterol 169 mg/dl (140-200); Estimated Glomerular Filt Rate 85 ml/min (>60); GFR (African American) 103 ML/MIN (>60); Glucose 103 mg/dl (74-100); HDL Cholesterol 60 mg/dl (40-60); Potassium 3.8 mmoL/L (3.5-5.1); Sodium 138 mmol/L (136-145); Total Protein,Serum 6.7 g/dl (6.3-8.2); Triglycerides 136 mg/dl (30-150); VLDL Cholesterol 27 mg/dL (0-40)
[2024-09-13 15:53] LABS: Direct LDL Cholesterol 84.28 mg/dL (100-129)
[2024-09-13 15:56] LABS: Free T4 (Free Thyroxine) 1.01 ng/dl (0.78-2.19)
[2024-09-13 16:12] LABS: Thyroid Stimulating Hormone 0.96 uIU/mL (0.465-4.68)
== END 2024-09-13 23:59 | disposition home or self-care (01) ==
LOC: LAB 14:41
PROVIDERS: PCP Internal Medicine; Visit Provider Physician Assistant
DX: I49.3 Ventricular premature depolarization (principal); R00.2 Palpitations
CPT/HCPCS: 36415; 80048; 80061; 80076; 83735; 84439; 84443; 85025; 93270

== ENCOUNTER 2024-11-30 14:55 | Outpatient (CLI) | payer OTHER, SELFPAY ==
[2024-11-30 15:24] LABS: Basophils # 0.1 K/mm3 (0-0.2); Basophils % 0.6 % (0.1-2.0); Eosinophils # 0.1 K/mm3 (0.0-0.4); Eosinophils % 1.2 % (0.1-12.0); Hematocrit 41.7 % (37.0-47.0); Hemoglobin 13.5 g/dL (12.2-16.2); Lymphocytes # 1.9 K/mm3 (0.7-4.5); Lymphocytes % 22.8 % (10-50); Mean Corpuscular HGB Conc 32.4 g/dL (31.8-35.4); Mean Corpuscular Hemoglobin 28.2 pg (27.0-31.2); Mean Corpuscular Volume 87.1 fl (81-99); Mean Platelet Volume 11.1 fl (7.4-10.4); Monocytes # 0.4 K/mm3 (0.1-1.0); Monocytes % 4.6 % (1.7-9.3); Neutrophils # 5.9 K/mm3 (1.8-7.8); Neutrophils % 70.7 % (37.0-80.0); Nucleated Red Blood Cells # 0 10^3/uL; Nucleated Red Blood Cells % 0 %; Platelet Count 235 K/mm3 (142-424); Red Blood Count 4.79 M/mm3 (4.20-5.40); Red Cell Distribution Width 11.8 % (11.5-17.5); Red Cell Distribution Width-SD 37.7 fL; White Blood Count 8.3 K/mm3 (4.8-10.8)
[2024-11-30 16:59] LABS: Chloride 104 mmol/L (98-107); Potassium 4.2 mmoL/L (3.5-5.1); Sodium 140 mmol/L (136-145)
[2024-11-30 17:02] LABS: Anion Gap 14.2 mEq/L (5-15); Blood Urea Nitrogen 21 mg/dl (7-17); Calcium 9.2 mg/dl (8.4-10.2); Carbon Dioxide 26 mmol/L (22.0-30.0); Estimated Glomerular Filt Rate 85 ml/min (>60); GFR (African American) 103 ML/MIN (>60); Glucose 79 mg/dl (74-100); Magnesium 1.8 mg/dl (1.6-2.3)
[2024-11-30 17:11] LABS: Free T4 (Free Thyroxine) 1.17 ng/dl (0.78-2.19)
[2024-11-30 17:27] LABS: Thyroid Stimulating Hormone 1.02 uIU/mL (0.465-4.68)
== END 2024-11-30 23:59 | disposition home or self-care (01) ==
LOC: LAB 14:56
PROVIDERS: PCP Internal Medicine; Visit Provider Nurse Practitioner
DX: I49.3 Ventricular premature depolarization (principal)
CPT/HCPCS: 36415; 80048; 83735; 84439; 84443; 85025; 93270

== ENCOUNTER 2025-04-18 08:30 | Outpatient (CLI) | payer OTHER, SELFPAY ==
[2025-04-18 15:01] LABS: Coronavirus 19, PCR Not Detected (NotDetected); Influenza A, PCR Not Detected (NotDetected); Influenza B, PCR Not Detected (NotDetected)
--- OUTSIDE RECORDS SUMMARY | 2025-04-20 12:49 | XMS_ITS | Clinical Summary ---
Author Organization [facility] Address [address] [place] [address] Care Team Providers Care Wall Taper Helper Name Role Phone Salomon Villalobos MD Primary Care Provider + Allergies Active Allergy Reactions Criticality Noted Date Comments Adhesive Tape Rash Low 08/11/2018 Medications ferrous sulfate 325 (65 FE) MG tablet Take 325 mg by mouth Daily With Breakfast. Active Vit-Fe Fumarate-FA ( ) 27-1 MG tablet tablet Take 1 tablet by mouth Daily. Active ibuprofen (ADVIL,MOTRIN) 600 MG tablet Take 1 tablet by mouth Every 6 (Six) Hours As Needed for Mild Pain . 30 tablet 08/14/2018 Active Resolved Problems Problem Noted Date Diagnosed Date Resolved Date 08/11/2018 08/14/2018 Social History Tobacco Use Types Packs/Day Years Used Date Smoking Tobacco: Former Smokeless Tobacco: Never Alcohol Use Standard Drinks/Week Comments No 0 (1 standard drink = 0.6 oz pur e alcohol) AUDIT-C Answer Date Recorded Frequency of Alcohol Consumption Never 08/09/2018 Average Number of Drinks Not on file 018 Frequency of Binge Drinking Not on file 07/18 [place] Depression Scale Answer Date Recorded Retired Glidden Depression Score 10 08/12/2018 Retired EPD Scale: Thought of Harming Self Unrec ognized value 08/12/2018 Abuse Screen Answer Date Recorded Unsafe at Home or Work/School Not on file Feels Threatened by Someone? Not on file 04/2023 Does Anyone Keep You from Co ntacting Others or Doint Things Outside the Home? Not on file 05/25/2023 Physical Sign of Abuse Present Not on file 1 Housing Stability Answer Date Recorded Current Living Arrangements Not on file 04/2023 Potentially Unsafe Housing Conditions Not on gwendolyn e 05/25/2023 Family and Community Support Answer Yamil e Recorded Help with Day-to-Day Activities Not on file 05/25/2023 Lonely or Isolated Not on file 05/25/2023 Employment Answer Date Recorded Do you want help finding or keeping work or a ambrocio b? Not on file 05/25/2023 Disabilities Answer Date Recorded Concentrating, Remembering, or Making Decisions Difficulty Not on file 05/25/2023 Doing Errands Independently Difficulty Not on fi le 05/25/2023 Education Answer Date Recorded Help with school or training? Not on file Preferred Language Not on file 05/25/2023 Comments No Sex and Gender Information Value Date Recorded Sex Assigned at Not on file Legal Sex Female 11:29 AM EDT Gender Identity Not on file Sexual Orientation Not on file Last Filed Vital Signs Vital Sign Reading Time Taken Comments Blood Pressure 126/76 08/14/2018 8:00 AM EST Pulse 69 08/14/2018 8:00 AM EST Temperature 36.8 C (98.3 F) 08/14/2018 8:00 AM EST Respiratory Rate 16 08/14/2018 8:00 AM EST Oxygen Saturation 97% 08/12/2018 6:50 AM EST Inhaled Oxygen Concentration - - Weight 89.4 kg (197 lb) 08/11/2018 2:21 PM EST Height 162.6 cm (5' 4 ) 08/11/2018 2:21 PM EST Body Mass Index 33.81 08/11/2018 2:21 PM EST Plan of Treatment Health Maintenance Due Date Last Done Comments Annual Gynecologic Pelvic an d Breast Exam 1996 TDAP/TD VACCINES (1 - Tdap) 02/13/2015 ANNUAL PHYSICAL 08/11/2018 HEPATITIS C SCREENING 08/11/2018 COVID-19 Vaccine ( - 2023-2 5 season) 2025 INFLUENZA VACCINE 05/17/2025 Pneumococcal Vaccine 0-49 Aged Out No longer eligible based on patient's age to complete this topic Insurance Latrice FERNANDEZ, JENNA [id number] [facility] BLUE [facility] PPO Advance Directives * CPR (Attempt to Resuscitate) (Latest Code Status on File) Date Activated Date Inactivated Comments 08/12/2018 4:57 PM 08/14/2018 4:24 PM Question Answer Comments Code Status (Patient has no pulse and is not breathing): CPR (Attempt to Resuscitate) Medical Interventions (Patie nt has pulse or is breathing): Full * CPR (Attempt to Resuscitate) Date Activated Date Inactivated Comments 08/11/2018 2:18 PM 08/12/2018 4:57 PM Question Answer Comments Code Status (Patient has no pulse and is not breathing): CPR (Attempt to Resuscitate) Medical Interventions (Patie nt has pulse or is breathing): Full Care Teams Wall Taper Helper Relationship Specialty Start Date End Date Salomon Villalobos MD PCP - General Family Medicine 06/15/18
--- OUTSIDE RECORDS SUMMARY | 2025-04-20 12:49 | XMS_ITS | Clinical Summary ---
Author Organization [facility] Address [address] [place] [address] Care Team Providers Care Social Work Lecturer Name Role Phone Unavailable Primary Care Provider Unavailabl e Social History Tobacco Use Types Packs/Day Years Used Date Smoking Tobacco: Never Assessed Comments Unknown Sex and Gender Information Value Date Recorded Sex Assigned at Not on file Legal Sex Female 11:47 AM EDT Gender Identity Not on file Sexual Orientation Not on file Plan of Treatment Health Maintenance Due Date Last Done Comments [facility]-Depression Screening 1996 [facility]-Infant/Child/Adol SDOH Screenings 1996 [facility]-Varicella Vaccines (1 of 2 - 13+ 2-dose series) 02/13/2009 [facility]- SDOH Screenings 02/13/2014 [facility]-Adult SDOH Screenings 02/13/2014 [facility]-DTaP,Tdap,and Td Vaccines (1 - Tdap) 02/13/2015 [facility]-Hepatitis B Vaccines (1 of 3 - 19+ 3-dose series) 02/13/2015 [facility]-Pap Smear 02/13/2017 HPV Vaccines (1 - 3-dose SCDM series) 02/13/2023 [id number] Vaccine (3 - season) 2024 11/28/2020, 10/31/2020 [facility]-Influenza Vaccine (#1) 2025 [facility]-Zoster Vaccines (1 of 2) 02/13/2046 [facility]-HIB Vaccines Aged Out No longer e ligible based on patient's age to complete this topic [facility]-Hepatitis A Vaccines Aged Out No longer eligible based on patient's age to complete this topic [facility]-IPV Vaccines Aged Out No longer e ligible based on patient's age to complete this topic [facility]-Pneumococcal Vaccine: Pediatrics (0 to 5 Years) and At-Risk Patients (6 to 49 Years) Aged Out No longer eligible b ased on patient's age to complete this topic [facility]-Rotavirus Vaccines Aged Out No lo nger eligible based on patient's age to complete this topic
== END 2025-04-18 23:59 | disposition home or self-care (01) ==
LOC: LAB.DROPOF 04-20 12:47
PROVIDERS: PCP Student in an Organized Health Care Education/Training Program; Visit Provider Student in an Organized Health Care Education/Training Program
DX: J06.9 Acute upper respiratory infection, unspecified (principal)
CPT/HCPCS: 87631

== ENCOUNTER 2025-05-19 09:06 | Outpatient (CLI) | payer OTHER, SELFPAY ==
--- OUTSIDE RECORDS SUMMARY | 2025-05-22 09:14 | XMS_ITS | Clinical Summary ---
Author Organization [facility] Address [address] [place] [address] Care Team Providers Care Box Bender Name Role Phone Salomon Villalobos MD Primary [...] of Binge Drinking Not on file 07/18 [place] Depression Scale Answer Date Recorded Retired [place] Depression Score 10 08/12/2018 Retired EPD Scale: [...] ANNUAL PHYSICAL 08/11/2018 HEPATITIS C SCREENING 08/11/2018 INFLUENZA VACCINE 03/17/2025 Pneumococcal Vaccine 0-49 Aged Out No longer eligible based on patient's age to complete this topic Insurance [facility] PPO Advance Directives * CPR (Attempt to [...] pulse or is breathing): Full Care Teams Box Bender Relationship Specialty Start Date End Date Salomon Villalobos MD PCP - General Family Medicine 06/15/18
--- OUTSIDE RECORDS SUMMARY | 2025-05-22 09:14 | XMS_ITS | Clinical Summary ---
Author Organization [facility] Address [address] [place] [address] Care Team Providers Care General Practitioner Name Role Phone Unavailable Primary Care Provider [...] Date Last Done Comments [facility]-Depression Screening 1996 [facility]-/Child/Adol SDOH Screenings 1996 [facility]-Varicella Vaccines (1 of 2 - 13+ 2-dose series) 02/13/2009 [facility]- SDOH Screenings 02/13/2014 [facility]-Adult SDOH Screenings 02/13/2014 [facility]-DTaP,Tdap,and Td Vaccines (1 - Tdap) 02/13/2015 [facility]-Hepatitis B Vaccines (1 of 3 - 19+ 3-dose series) 02/13/2015 [facility]-Pap Smear 02/13/2017 HPV Vaccines (1 - 3-dose SCDM series) 02/13/2023 [id number] Vaccine (3 - 2024- season) 2025 11/28/2020, 10/31/2020 [facility]-Influenza Vaccine (#1) 2025 [facility]-Zoster [...]
== END 2025-05-19 23:59 | disposition home or self-care (01) ==
LOC: LAB.DROPOF 05-22 09:07
PROVIDERS: PCP Internal Medicine; Visit Provider Internal Medicine
DX: R61 Generalized hyperhidrosis (principal); R53.83 Other fatigue
CPT/HCPCS: 86225; 86235

== ENCOUNTER 2025-07-07 09:48 | Outpatient (CLI) | payer OTHER, SELFPAY ==
--- OUTSIDE RECORDS SUMMARY | 2025-07-07 09:50 | XMS_ITS | Clinical Summary ---
Author Organization [facility] Address [address] [place] [address] Care Team Providers Care Lap Grinder Name Role Phone Salomon Villalobos MD Primary [...] of Binge Drinking Not on file 07/18 [place] Depression Scale Answer Date Recorded [place] Depression Scale Total 10 08/12/2018 The thought of harming myself has occurred to me . Unrecognized value 08/12/2018 Abuse Screen Answer Date Recorded [...] patient's age to complete this topic Insurance [facility] PPO Advance Directives * CPR (Attempt to [...] pulse or is breathing): Full Care Teams Lap Grinder Relationship Specialty Start Date End Date Salomon Villalobos MD PCP - General Family Medicine 06/15/18
--- OUTSIDE RECORDS SUMMARY | 2025-07-07 09:50 | XMS_ITS | Clinical Summary ---
Author Organization [facility] Address [address] [place] [address] Care Team Providers Care Manager Star Name Role Phone Unavailable Primary Care Provider [...] Vaccines (1 - 3-dose SCDM series) 02/13/2023 [id number] Vaccine (3 - 2024- season) 2025 11/28/2020, [...]
[2025-07-07 10:09] LABS: Hematocrit 42.7 % (37.0-47.0); Hemoglobin 13.9 g/dL (12.2-16.2); Immature Granulocytes % 0.2 %; Mean Corpuscular HGB Conc 32.6 g/dL (31.8-35.4); Mean Corpuscular Hemoglobin 28.3 pg (27.0-31.2); Mean Corpuscular Volume 86.8 fl (81-99); Nucleated Red Blood Cells % 0 %; Platelet Count 212 K/mm3 (142-424); Red Blood Count 4.92 M/mm3 (4.20-5.40); Red Cell Distribution Width-SD 37.9 fL; White Blood Count 6.4 K/mm3 (4.8-10.8)
[2025-07-07 10:37] LABS: Albumin Level 4.4 g/dl (3.5-5.0); Chloride 106 mmol/L (98-107); Sodium 144 mmol/L (136-145)
[2025-07-07 10:38] LABS: Potassium 4.2 mmoL/L (3.5-5.1)
[2025-07-07 10:40] LABS: Alanine Aminotransferase 17 U/L (12-78); Alkaline Phosphatase 58 U/L (38-126); Anion Gap 16.2 mEq/L (5-15); Aspartate Amino Transferase 23 U/L (14-36); Bilirubin,Direct 0.0 mg/dl (0.0-0.4); Bilirubin,Indirect 0.6 mg/dL (0.0-0.9); Bilirubin,Total 0.6 mg/dl (0.2-1.3); Bilirubin,Unconjugated 0.6 mg/dL (0.0-1.1); Blood Urea Nitrogen 15 mg/dl (7-17); Calcium 9.3 mg/dl (8.4-10.2); Carbon Dioxide 26 mmol/L (22.0-30.0); Cholesterol 159 mg/dl (140-200); Creatinine,Serum 0.90 mg/dl (0.52-1.04); Estimated Glomerular Filt Rate 74 ml/min (>60); GFR (African American) 90 ML/MIN (>60); Glucose 85 mg/dl (74-100); Iron 101 ug/dL (37-170); Total Protein,Serum 7.0 g/dl (6.3-8.2); Triglycerides 63 mg/dl (30-150)
[2025-07-07 10:41] LABS: HDL Cholesterol 48 mg/dl (40-60); Magnesium 2.0 mg/dl (1.6-2.3)
[2025-07-07 10:50] LABS: Total Iron Binding Capacity 297 ug/dL (265-497)
[2025-07-07 10:59] LABS: 25-OH Vitamin D, Total 59.6 ng/mL (30-100)
[2025-07-07 11:01] LABS: Free T4 (Free Thyroxine) 1.10 ng/dl (0.78-2.19)
[2025-07-07 11:39] LABS: Ferritin 24.2 ng/ml (6.24-137)
[2025-07-07 11:40] LABS: Thyroid Stimulating Hormone 1.34 uIU/mL (0.465-4.68)
[2025-07-07 11:53] LABS: Folate > 20.00 ng/mL
[2025-07-07 12:01] LABS: Vitamin B12 668 pg/mL (239-931)
== END 2025-07-07 23:59 | disposition home or self-care (01) ==
LOC: LAB 09:48
PROVIDERS: PCP Internal Medicine; Visit Provider Internal Medicine
DX: G90.A Postural orthostatic tachycardia syndrome [POTS] (principal); R53.83 Other fatigue
CPT/HCPCS: 36415; 80048; 80061; 80076; 82306; 82607; 82728; 82746; 83540; 83550; 83735; 84439; 84443; 85025